=== PATIENT | male | born 1970 | race Two or more races ===

== ENCOUNTER 2019-08-08 12:38 | Observation (INO) | payer SELFPAY ==
--- NOTE | 2019-08-08 13:09 | PDOC ---
History of Present Illness - General Chief Complaint: Palpitations Stated Complaint: CHEST PAIN Time Seen by Provider: 08/08/19 13:06 Past History - Past Medical History Allergies/Adverse Reactions: Allergies Allergy/AdvReac Type Severity Reaction Status Date / Time tramadol Allergy Verified 08/08/19 12:56 Home Medications: Ambulatory Orders Aspirin 81 mg PO DAILY 08/08/19 Insulin (Levemir) [Levemir Vial] 45 units SQ BID 08/08/19 Losartan Potassium 50 mg PO DAILY 08/08/19 Omeprazole 20 mg PO DAILY 08/08/19 COPD: No Diabetes: Yes HTN: Yes - Psycho Social/Smoking Cessation Hx Smoking History: Current some day smoker Have you smoked in the past 12 months: Yes Number of Cigarettes Smoked Daily: 1 Information on smoking cessation initiated: No Hx Alcohol Use: No Drug/Substance Use Hx: No *Physical Exam - Vital Signs Last Vital Signs Temp Pulse Resp BP Pulse Ox 97.8 F 64 18 131/75 99 08/08/19 12:59 08/08/19 12:59 08/08/19 12:59 08/08/19 12:59 08/08/19 12:59 Heart Score/ECG Review - History History: Moderately suspicious - Electrocardiogram EKG: Normal - Age Age: 45-65 - Risk Factors Risk Factors Heart Score: Yes Hx Hypercholesterolemia, Yes Hx Hypertension, Yes Smoking History Based on the list above the patient has:: >/=3 risk factors or Hx atherosclerotic disease - Troponin Troponin: </= normal limit - Score Heart Score - Total: 4 ED Treatment Course - LABORATORY CBC & Chemistry Diagram: 08/08/19 14:20 08/08/19 14:40 Medical Decision Making - Medical Decision Making HPI: 49yo M with PMH of HTN, HLD, smoking, esosive gastritis, hiatal hernia presenting with chest pain x 12 days. The pain is described as "pressure" and rated 4/10. Patient also endorses tachycardia, lightheadedness, shortness of breath, and a sensation of a bounding pressure in his neck. He has had this sensation before but it is now more severe. Was evaluated in [place] about 17 days ago with a negative workup. No hemoptysis, no recent surgical history, no recent immobilization, no hormone use, no history of DVT or PE. Denies fever or chils. PCP: in [place] ROS: Constitutional: no fever, no chills HEENT: no throat pain, no dysphagia Cardiovascular: +chest pain, +palpitations Respiratory: no cough, +shortness of breath Gastrointestinal: +abdominal pain, no nausea Genitourinary: no dysuria, no hematuria Musculoskeletal: no myalgia, no arthralgia Skin: no rash, no itching Neurologic: +lightheadedness, +weakness PE: General: Awake, alert, and fully oriented, in no acute distress Head: No signs of trauma Eyes: EOMI, sclera anicteric ENT: Moist mucus membranes Neck: Normal ROM, supple Lungs: Lungs clear, Normal breath sounds Cardio: Regular rhythm, S1 and S2 present Abdomen: Soft, nontender. No guarding, no rebound, no masses Extremities: Normal range of motion, Distal pulses present, No calf tenderness SKIN: Warm, Dry, normal turgor Neurologic: Cranial nerves II through XII grossly intact. Normal speech ED Course/MDM: DDX including but not limited to ACS, PE, PNA, anemia, metabolic derangement Labs, EKG, CXR EKG: rate 61, QTc 390. NSR 08/08/19 13:09 CBC WBC 7.5 K/mm3 (4.0-10.0) 08/08/19 14:20 RBC 5.01 M/mm3 (4.00-5.60) 08/08/19 14:20 Hgb 15.7 GM/dL (11.7-16.9) 08/08/19 14:20 Hct 45.3 % (35.4-49) 08/08/19 14:20 MCV 90.4 fl (80-96) 08/08/19 14:20 MCH 31.4 pg (25.7-33.7) 08/08/19 14:20 MCHC 34.7 g/dl (32.0-35.9) 08/08/19 14:20 RDW 12.3 % (11.9-15.9) 08/08/19 14:20 Plt Count 175 K/MM3 (134-434) 08/08/19 14:20 MPV 10.8 fl (7.5-11.1) 08/08/19 14:20 Absolute Neuts (auto) 4.2 K/mm3 (1.5-8.0) 08/08/19 14:20 Neutrophils % 55.6 % (42.8-82.8) 08/08/19 14:20 Lymphocytes % 36.4 % (8-40) 08/08/19 14:20 Monocytes % 7.0 % (3.8-10.2) 08/08/19 14:20 Eosinophils % 0.7 % (0-4.5) 08/08/19 14:20 Basophils % 0.3 % (0-2.0) 08/08/19 14:20 Nucleated RBC % 0 % (0-0) 08/08/19 14:20 No leukocytosis CMP Sodium 140 mmol/L (136-145) 08/08/19 14:40 Potassium 4.4 mmol/L (3.5-5.1) 08/08/19 14:40 Chloride 103 mmol/L (98-107) 08/08/19 14:40 Carbon Dioxide 30 mmol/L (21-32) 08/08/19 14:40 Anion Gap 6 MMOL/L (8-16) L 08/08/19 14:40 BUN 11.8 mg/dL (7-18) 08/08/19 14:40 Creatinine 0.7 mg/dL (0.55-1.3) 08/08/19 14:40 Est GFR (CKD-EPI)AfAm 127.53 08/08/19 14:40 Est GFR (CKD-EPI)NonAf 110.04 08/08/19 14:40 Random Glucose 76 mg/dL (74-106) 08/08/19 14:40 Calcium 9.2 mg/dL (8.5-10.1) 08/08/19 14:40 Total Bilirubin 0.8 mg/dL (0.2-1) 08/08/19 14:40 AST 13 U/L (15-37) L 08/08/19 14:40 ALT 25 U/L (13-61) 08/08/19 14:40 Alkaline Phosphatase 102 U/L (45-117) 08/08/19 14:40 Creatine Kinase 63 U/L (26-308) 08/08/19 14:20 Troponin I < 0.02 ng/ml (0.00-0.05) 08/08/19 14:20 Total Protein 7.0 g/dl (6.4-8.2) 08/08/19 14:40 Albumin 4.0 g/dl (3.4-5.0) 08/08/19 14:40 TSH 0.23 uIU/ml (0.358-3.74) L 08/08/19 14:20 Electrolytes unremarkable Cr normal Tpn undetectable TSH is low We will add on T3 and T4 Discussed case with Dr. Mo who accepted patient for telemetry observation under herself. 08/08/19 16:27 CXR, as read by radiology: "There are no prior studies for comparison. There are clear lungs, normal mediastinum and sharp angles. The bones and soft tissues are intact. Impression: No acute chest pathology. " Discharge - Discharge Information Problems reviewed: Yes Clinical Impression/Diagnosis: Chest pain Qualifiers: Chest pain type: unspecified Qualified Code(s): R07.9 - Chest pain, unspecified Condition: Guarded Disposition: HOME - Admission Yes - Follow up/Referral - Patient Discharge Instructions - Post Discharge Activity
[2019-08-08 13:21] VITALS: BMI 22.0
[2019-08-08] MEDS ORDERED: ACETAMINOPHEN 1000 MG/100 ML VIAL (NON FORMULARY) IVPB ONE (13:44)
[2019-08-08] MEDS ORDERED: ASPIRIN 81 MG CHEWABLE TABLETS PO ONE (13:49)
[2019-08-08] MEDS ORDERED: ASPIRIN 81 MG CHEWABLE TABLETS ONE (14:11)
[2019-08-08 14:54] LABS: BASO % 0.3 % (0-2.0); EOS % 0.7 % (0-4.5); HEMATOCRIT 45.3 % (35.4-49); HEMOGLOBIN 15.7 GM/dL (11.7-16.9); LYMPH % 36.4 % (8-40); MCH 31.4 pg (25.7-33.7); MCHC 34.7 g/dl (32.0-35.9); MEAN CELL VOLUME 90.4 fl (80-96); MEAN PLT VOLUME 10.8 fl (7.5-11.1); NEUT % 55.6 % (42.8-82.8); PLATELET COUNT 175 K/MM3 (134-434); RBC 5.01 M/mm3 (4.00-5.60); RDW 12.3 % (11.9-15.9); WHITE BLOOD COUNT 7.5 K/mm3 (4.0-10.0)
[2019-08-08 15:05] LABS: INR 1.07 (0.83-1.09); PROTHROMBIN TIME (PATIENT) 12.6 SEC (9.7-13.0)
[2019-08-08 15:31] LABS: BILIRUBIN,TOTAL 0.8 mg/dL (0.2-1); BLOOD UREA NITROGEN 11.8 mg/dL (7-18); CALCIUM 9.2 mg/dL (8.5-10.1); CREATININE 0.7 mg/dL (0.55-1.3); POTASSIUM 4.4 mmol/L (3.5-5.1)
--- NOTE | 2019-08-08 15:36 | PDOC ---
Attending Attestation - Resident Resident Name: Raymon Beckwithth - ED Attending Attestation I have performed the following: I have examined & evaluated the patient, The case was reviewed & discussed with the resident, I agree w/resident's findings & plan, Exceptions are as noted - HPI HPI: 08/08/19 15:32 Iron 49-year-old female male history of hypertension and diabetes here today complaining of palpitations chest pressure and chest pain. Patient states he has been getting it often over the last few days. States it is worse with certain movements such as going from a lying to a standing in addition to rolling over in his bed. He describes capitation's or irregular heartbeats in addition to a pressure-like sensation. Denies feeling short of breath no associated nausea or vomiting. Has had a previous cardiac work-up including a stress test which he had one year and a half ago in [facility] and a previous Holter monitor. 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 Patient is here visiting currently for 11 days denies any leg swelling pain is not pleuritic no history of blood clots no family history of heart disease - Physicial Exam PE: 08/08/19 15:34 Awake alert no acute distress lungs are clear bilaterally heart is regular with any murmurs rubs or gallops abdomen is soft nontender extremities are warm and well-perfused skin is warm and dry patient has 2+ symmetric pulses bilaterally neurologically is alert and oriented x3 skin is warm and dry - Medical Decision Making 08/08/19 15:34 49-year-old male history of diabetes hypertension with a negative prior cardiac work-up 1 year and a half ago here today complaining of palpitations and chest pressure. Plan CBC CMP troponin EKG chest x-ray. Patient does have a recent negative work-up however will at least require a 4-hour troponin. Aspirin given here in the ED EKG with normal sinus rhythm no ST elevation Heart Score/ECG Review - History History: Moderately suspicious - Electrocardiogram EKG: Non specific repolarization disturbance - Age Age: 45-65 - Risk Factors Risk Factors Heart Score: Yes Hx Hypertension, Yes Hx Diabetes, Yes Smoking History Based on the list above the patient has:: >/=3 risk factors or Hx atherosclerotic disease - Troponin Troponin: </= normal limit - Score Heart Score - Total: 5 #1 ECG reviewed & interpreted by me at: 15:40 General ECG Interpretation: Sinus Rhythm, Normal Rate (61), Normal Intervals, No acute ischemic changes
--- NOTE | 2019-08-08 16:13 | EKG ---
Test Reason : Blood Pressure : / mmHG Vent. Rate : 061 BPM Atrial Rate : 061 BPM P-R Int : 150 ms QRS Dur : 092 ms QT Int : 388 ms P-R-T Axes : 061 071 067 degrees QTc Int : 390 ms NORMAL SINUS RHYTHM NORMAL ECG NO PREVIOUS ECGS AVAILABLE Confirmed by MARIAH THOMPSON MD ([id number]) on 08/08/2019 4:12:44 PM Referred By: Confirmed By:MARIAH THOMPSON MD
[2019-08-09 06:04] VITALS: TEMP 97.5
--- NOTE | 2019-08-09 11:34 | CON.CARD ---
Consult Consult Specialty:: Cardiology Referred by:: Dr. Mo Reason for Consultation:: Cardiac evaluation - History of Present Illness Chief Complaint: Chest pain History of Present Illness: Patient is a 49 year old male with underlying history of HTN, hypercholesterolemia, erosive gastritis and hiatal hernia who presents with complaints of mid sternal chest discomfort (pressure) for past 6-7 days intermittently. He also complains of left sided weakness intermittently and palpitations intermittently. He denies headache or lightheadedness. He denies fever or chills. He denies nausea, vomiting, diarrhea or abdominal pain. He denies paroxysmal nocturnal dyspnea or orthopnea. He resides in [place] where he presented to a local hospital in [place] ([facility]) and had cardiac work up including stress testing. He has come to [place] in the process of possible relocation. - History Source History Provided By: Patient, Medical Record Limitations to Obtaining History: No Limitations - Past Medical History Cardio/Vascular: Yes: HTN, Hyperlipdemia Gastrointestinal: Yes: Hiatal Hernia, Other (Erosive gastritis) - Alcohol/Substance Use Hx Alcohol Use: Yes (social) - Smoking History Smoking history: Current some day smoker Have you smoked in the past 12 months: Yes Aproximately how many cigarettes per day: 1 Home Medications - Allergies Allergies/Adverse Reactions: Allergies Allergy/AdvReac Type Severity Reaction Status Date / Time tramadol Allergy Verified 08/08/19 12:56 - Home Medications Home Medications: Ambulatory Orders Aspirin 81 mg PO DAILY 08/08/19 Insulin (Levemir) [Levemir Vial] 45 units SQ BID 08/08/19 Losartan Potassium 50 mg PO DAILY 08/08/19 Omeprazole 20 mg PO DAILY 08/08/19 Review of Systems - Review of Systems Constitutional: denies: Chills, Fever Cardiovascular: reports: Chest Pain, Palpitations. denies: Shortness of Breath Respiratory: denies: Cough, Hemoptysis, Orthopnea, PND, SOB, SOB on Exertion Gastrointestinal: denies: Abdominal Pain, Constipation, Diarrhea, Melena, Nausea , Rectal Bleeding, Vomiting Genitourinary: denies: Dysuria, Hematuria Musculoskeletal: denies: Joint Pain Neurological: denies: Dizziness, Headache, Seizure, Syncope Vital Signs: Vital Signs Temperature 97.5 F L 08/09/19 09:25 Pulse Rate 63 10/08/19 09:25 Respiratory Rate 17 08/09/19 09:25 Blood Pressure 117/71 08/09/19 09:25 O2 Sat by Pulse Oximetry (%) 99 08/09/19 10:20 Eyes: Yes: PERRL HENT: Yes: Atraumatic Neck: Yes: Supple Respiratory: Yes: CTA Bilaterally Gastrointestinal: Yes: Normal Bowel Sounds, Soft. No: Tenderness Cardiovascular: Yes: Regular Rate and Rhythm JVD: No Carotid Bruit: No PMI: Non-Displaced Heart Sounds: Yes: S1, S2 Murmur: No: Systolic Murmur, Diastolic Murmur Edema: No - Other Data Labs, Other Data: CBC, BMP 08/08/19 14:20 08/08/19 14:40 INR, PTT INR 1.07 (0.83-1.09) 08/08/19 14:20 Troponin, BNP 08/08/19 08/08/19 14:20 17:20 Troponin I < 0.02 < 0.02 Sinus rhythm with no ST-T abnormality Imaging - Results Chest X-ray: Report Reviewed (Unremarkable) EKG: Report Reviewed Problem List - Problems (1) HTN (hypertension) Code(s): I10 - ESSENTIAL (PRIMARY) HYPERTENSION (2) Hypercholesterolemia Code(s): E78.00 - PURE HYPERCHOLESTEROLEMIA, UNSPECIFIED (3) Erosive gastritis Code(s): K29.60 - OTHER GASTRITIS WITHOUT BLEEDING (4) Hiatal hernia Code(s): K44.9 - DIAPHRAGMATIC HERNIA WITHOUT OBSTRUCTION OR GANGRENE (5) Chest pain Code(s): R07.9 - CHEST PAIN, UNSPECIFIED Qualifiers: Chest pain type: unspecified Qualified Code(s): R07.9 - Chest pain, unspecified Assessment/Plan 1. Chest pain syndrome, atypical with underlying history of erosive gastritis and hiatal hernia 2. HTN 3. Hypercholesterolemia PLAN: 1. Troponins are negative 2. Echocardiography to assess LV/RV and valvular function 3. Continue Losartan 4. ASA if not contraindicated 5. Obtain records from hospital in [place] for further cardiac history Further plans are to follow Humberto Lange MD
--- NOTE | 2019-08-09 11:55 | HP ---
Admitting History and Physical - Primary Care Physician PCP: Viry Mo - Admission History of Present Illness: Iron 49-year-old female male history of hypertension and diabetes here today complaining of palpitations chest pressure and chest pain. Patient states he has been getting it often over the last few days. States it is worse with certain movements such as going from a lying to a standing in addition to rolling over in his bed. He describes capitation's or irregular heartbeats in addition to a pressure-like sensation. Denies feeling short of breath no associated nausea or vomiting. Has had a previous cardiac work-up including a stress test which he had one year and a half ago in [facility] and a previous Holter monitor. 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 Patient is here visiting currently for 11 days denies any leg swelling pain is not pleuritic no history of blood clots no family history of heart disease - Past Medical History Cardiovascular: Yes: HTN, Hyperlipdemia Gastrointestinal: Yes: Hiatal Hernia, Other (Erosive gastritis) - Smoking History Smoking history: Current some day smoker Have you smoked in the past 12 months: Yes Aproximately how many cigarettes per day: 1 - Alcohol/Substance Use Hx Alcohol Use: Yes (social) Home Medications - Allergies Allergies/Adverse Reactions: Allergies Allergy/AdvReac Type Severity Reaction Status Date / Time tramadol Allergy Verified 08/08/19 12:56 - Home Medications Home Medications: Ambulatory Orders Aspirin 81 mg PO DAILY 08/08/19 Insulin (Levemir) [Levemir Vial] 45 units SQ BID 08/08/19 Losartan Potassium 50 mg PO DAILY 08/08/19 Omeprazole 20 mg PO DAILY 08/08/19 Physical Examination Vital Signs: Vital Signs Temperature 97.5 F L 08/09/19 09:25 Pulse Rate 63 08/09/19 09:25 Respiratory Rate 17 08/09/19 09:25 Blood Pressure 117/71 08/09/19 09:25 O2 Sat by Pulse Oximetry (%) 99 08/09/19 10:20 Constitutional: Yes: No Distress HENT: Yes: Atraumatic Neck: Yes: Supple Cardiovascular: Yes: Regular Rate and Rhythm Respiratory: Yes: CTA Bilaterally Gastrointestinal: Yes: Normal Bowel Sounds Extremities: Yes: WNL Neurological: Yes: Alert, Oriented Labs: CBC, BMP 08/08/19 14:20 08/08/19 14:40 Problem List - Problems (1) Chest pain Assessment/Plan: tele monitoring fu cardiac profile and troponin cardiology consult Code(s): R07.9 - CHEST PAIN, UNSPECIFIED Qualifiers: Chest pain type: unspecified Qualified Code(s): R07.9 - Chest pain, unspecified (2) HTN (hypertension) Assessment/Plan: continue meds Code(s): I10 - ESSENTIAL (PRIMARY) HYPERTENSION (3) Hypercholesterolemia Code(s): E78.00 - PURE HYPERCHOLESTEROLEMIA, UNSPECIFIED (4) Diabetes Assessment/Plan: insulin and bgms Code(s): E11.9 - TYPE 2 DIABETES MELLITUS WITHOUT COMPLICATIONS Assessment/Plan Laboratory Tests 08/08/19 08/08/19 08/08/19 14:20 14:20 14:20 WBC 7.5 RBC 5.01 Hgb 15.7 Hct 45.3 MCV 90.4 MCH 31.4 MCHC 34.7 RDW 12.3 Plt Count 175 MPV 10.8 Absolute Neuts (auto) 4.2 Neutrophils % 55.6 Lymphocytes % 36.4 Monocytes % 7.0 Eosinophils % 0.7 Basophils % 0.3 Nucleated RBC % 0 PT with INR 12.60 INR 1.07 Sodium Potassium Chloride Carbon Dioxide Anion Gap BUN Creatinine Est GFR (CKD-EPI)AfAm Est GFR (CKD-EPI)NonAf Random Glucose Calcium Total Bilirubin AST ALT Alkaline Phosphatase Creatine Kinase 63 Troponin I < 0.02 Total Protein Albumin TSH Free T4 08/08/19 08/08/19 08/08/19 14:20 14:40 17:20 WBC RBC Hgb Hct MCV MCH MCHC RDW Plt Count MPV Absolute Neuts (auto) Neutrophils % Lymphocytes % Monocytes % Eosinophils % Basophils % Nucleated RBC % PT with INR INR Sodium 140 Potassium 4.4 Chloride 103 Carbon Dioxide 30 Anion Gap 6 L BUN 11.8 Creatinine 0.7 Est GFR (CKD-EPI)AfAm 127.53 Est GFR (CKD-EPI)NonAf 110.04 Random Glucose 76 Calcium 9.2 Total Bilirubin 0.8 AST 13 L ALT 25 Alkaline Phosphatase 102 Creatine Kinase Troponin I < 0.02 Total Protein 7.0 Albumin 4.0 TSH 0.23 L Free T4 1.14 Active Medications Generic Name Dose Route Start Last Admin Trade Name Freq PRN Reason Stop Dose Admin Aspirin 81 mg 08/09/19 12:00 08/09/19 12:24 Asa - PO 81 mg DAILY JENNY Administration Losartan Potassium 50 mg 08/09/19 12:15 08/09/19 12:24 Cozaar - PO 50 mg DAILY JENNY Administration
[2019-08-09] MEDS ORDERED: ASPIRIN 81 MG CHEWABLE TABLETS PO SCH (12:00)
[2019-08-09] MEDS ORDERED: LOSARTAN POTASSIUM 50 MG TABLET (FP) PO SCH (12:15)
--- NOTE | 2019-08-09 12:16 | ECHO ---
Version: 1 Name: BASIL CORONA Exam: Adult Echocardiogram Study Date: 08/09/2019, 11:07 AM Age: 49 Years MMode/2D Measurements & Calculations IVSd: 0.88 cm LVIDs: 2.7 cm LVIDd: 4.5 cm LVPWd: 0.97 cm LVOT diam: 2.12 cm Ao root diam: 2.7 cm LA dimension: 2.9 cm Doppler Measurements & Calculations MV E max naif: 67.6 cm/sec Med E/e': 8.0 MV A max niaf: 57.8 cm/sec Med Peak E' Naif: 8.5 cm/sec MV E/A: 1.17 Lat E/e': 5.3 Lat Peak E' Naif: 12.7 cm/sec Ao max P.8 mmHg COMFORT(I,D): 2.8 cm Ao mean P.48 mmHg LV V1 mean: 58.1 cm/sec Ao V2 max: 109.1 cm/sec LV V1 mean P.56 mmHg TR max naif: 188.7 cm/sec TR max P.5 mmHg Left Ventricle The left ventricular size, thickness and function are normal. Ejection Fraction = 70%. Right Ventricle The right ventricle is normal in size and function. Atria Normal left and right atrial size and function. Mitral Valve The mitral valve is normal in structure and function. Tricuspid Valve The tricuspid valve is normal in structure and function. There is mild tricuspid regurgitation. Aortic Valve The aortic valve is normal in structure and function. Trace aortic regurgitation. Pulmonic Valve The pulmonic valve is normal in structure and function. Great Vessels The aortic root is normal size. Normal aortic arch, descending and ascending aorta. Pericardium/Pleura There is no pericardial effusion. Summary Statements The left ventricular size, thickness and function are normal Ejection Fraction = 70%. The right ventricle is normal in size and function. Normal left and right atrial size and function. The mitral valve is normal in structure and function. The tricuspid valve is normal in structure and function. There is mild tricuspid regurgitation. The aortic valve is normal in structure and function. Trace aortic regurgitation. The pulmonic valve is normal in structure and function. The aortic root is normal size. Normal aortic arch, descending and ascending aorta There is no pericardial effusion. Manjit Mooney 08/09/2019, 11:16 AM Ordering Physician: DAMIEN MARTÍNEZ Referring Physician: DAMIEN MARTÍNEZ Performed By: Jeanie Dexter
[2019-08-09] MEDS ORDERED: LOSARTAN POTASSIUM 50 MG TABLET (FP) ONE (12:19)
[2019-08-09] MEDS ORDERED: ASPIRIN 81 MG CHEWABLE TABLETS ONE (12:19)
--- NOTE | 2019-08-09 15:16 | DS ---
Physical Examination Vital Signs: Vital Signs Temperature 97.5 F L 08/09/19 09:25 Pulse Rate 71 08/09/19 12:24 Respiratory Rate 17 08/09/19 12:24 Blood Pressure 118/78 08/09/19 12:24 O2 Sat by Pulse Oximetry (%) 100 08/09/19 12:24 Labs: CBC, BMP 08/08/19 14:20 08/08/19 14:40 Discharge Summary Problems reviewed: Yes Reason For Visit: CHEST PAIN Current Active Problems Chest pain (Acute) Diabetes (Acute) Erosive gastritis (Acute) HTN (hypertension) (Acute) Hiatal hernia (Acute) Hypercholesterolemia (Acute) Condition: Guarded - Instructions Diet, Activity, Other Instructions: see cardiology as out patient for further workup Referrals: Humberto Lange MD [Staff Physician] - - Home Medications Comprehensive Discharge Medication List: Ambulatory Orders Aspirin 81 mg PO DAILY 08/08/19 Insulin (Levemir) [Levemir Vial] 45 units SQ BID 08/08/19 Losartan Potassium 50 mg PO DAILY 08/08/19 Omeprazole 20 mg PO DAILY 08/08/19 dc home fu cardiology as out pt
[2019-08-09 15:43] VITALS: BP 110/79; PULSE 77
== END 2019-08-09 15:44 | disposition home or self-care (01) ==
LOC: JER 12:38 → JERBED 16:30
PROVIDERS: ADMIT Internal Medicine; ATTEND Internal Medicine
DX: R07.89 Other chest pain (principal); I10 Essential (primary) hypertension; E78.5 Hyperlipidemia, unspecified; E11.9 Type 2 diabetes mellitus without complications; K29.60 Other gastritis without bleeding; K44.9 Diaphragmatic hernia without obstruction or gangrene; Z79.82 Long term (current) use of aspirin; Z79.4 Long term (current) use of insulin; Z87.891 Personal history of nicotine dependence; Z88.6 Allergy status to analgesic agent
CPT/HCPCS: 36415; 71046-TC-FY; 80053; 82550; 84439; 84443; 84481; 84484; 85025; 85610; 93005; 93010; 93306-TC; 99285-25; G0378